=== PATIENT | male | born 2000 | race African-American/Black ===

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

== ENCOUNTER 2023-08-31 23:29 | Emergency (ER) | payer SELFPAY ==
[~2023-08-31] VITALS: Ht 177.8 cm; Wt 81.0 kg
[~2023-08-31 23:29] MED LIST changes: +FLEXERIL PO; +NAPRELAN375 MG PO
[2023-09-01 00:17] LABS: URINE BLOOD DIPSTICK Trace-lysed (NEGATIVE); URINE GLUCOSE - DIPSTICK Negative (NEGATIVE); URINE KETONE Trace mg/dL (NEGATIVE); URINE LEUK ESTERASE Negative (NEGATIVE); URINE NITRITE - DIPSTICK Negative (Negative); URINE PH 5.5 (4.5-8.0); URINE PROTEIN - DIPSTICK Trace mg/dL (NEG-TRACE); URINE SPECIFIC GRAVITY >=1.030; URINE UROBILINOGEN - DIPSTICK 0.2 E.U./dL (0.2)
[2023-09-01 00:18] LABS: BASO% 0.5 % (0-3); EOS% 1.6 % (0-8); HEMATOCRIT 48.2 % (39.0-50.0); HEMOGLOBIN 15.2 g/dl (14.0-18.0); IMMATURE GRANULOCYTES 0.1 % (0.0-5.0); LYMPH% 24.4 % (15-41); MEAN CELL VOLUME 86.7 fL CALC (80.0-100.0); MEAN CORPUSCULAR HGB 27.3 pG CALC (26.0-32.0); MEAN CORPUSCULAR HGB CONC 31.5 g/dL CAL (32.0-36.0); MONO% 6.7 % (2-13); NEUT# 7.51 thou/uL (1.82-7.42); NEUT% 66.7 % (42-76); RED BLOOD COUNT 5.56 mill/uL (4.70-6.10); RED CELL DISTRI WIDTH 12.6 % (11.5-15.5)
[2023-09-01 00:21] LABS: URINE COLOR Yellow
[2023-09-01 00:33] LABS: ALBUMIN 5.1 g/dL (3.2-5.0); ALKALINE PHOSPHATASE 99 u/l (38-126); BILIRUBIN, TOTAL 0.5 mg/dL (0.2-1.3); BUN 11 mg/dL (9-20); BUN/CREATININE RATIO 10 (12-20 (CALC)); CARBON DIOXIDE 28 mmol/l (22-30); CHLORIDE 104 mmol/l (95-108); CREATININE 1.1 mg/dL (0.7-1.3); ETHYL ALCOHOL 0 mg/dl (0-30); GFR FOR AFR.AMER. > 60 ML/MIN (>=60 (CALC)); GFR OTHER RACES > 60 ML/MIN (>=60 (CALC)); SGOT/AST 39 u/l (17-59); SODIUM 144 mmol/l (137-146); TOTAL PROTEIN 8.4 g/dL (6.3-8.2)
[2023-09-01 00:34] LABS: ANION GAP 15 (6-22 (CALC))
[2023-09-01 01:37] VITALS: BP 149/89
== END 2023-09-01 01:28 | disposition home or self-care (01) | DRG 897 ==
LOC: ED 23:29
PROVIDERS: Family Medicine
DX: F12.10 Cannabis abuse, uncomplicated (principal); F23 Brief psychotic disorder; E87.6 Hypokalemia

== ENCOUNTER 2023-09-03 19:35 | Emergency (ER) | payer SELFPAY ==
[~2023-09-03] VITALS: Ht 177.8 cm; Wt 136.0 kg
[2023-09-03 19:43] VITALS: BP 152/95
[2023-09-03 19:45] VITALS: BP 158/108
[2023-09-03 20:00] VITALS: BP 149/88
[2023-09-03 20:38] VITALS: BP 143/93
[2023-09-03 20:51] LABS: BASO% 0.5 % (0-3); EOS% 1.9 % (0-8); HEMATOCRIT 46.3 % (39.0-50.0); IMMATURE GRANULOCYTES 0.2 % (0.0-5.0); LYMPH% 27.7 % (15-41); MEAN CELL VOLUME 85.9 fL CALC (80.0-100.0); MEAN CORPUSCULAR HGB 27.8 pG CALC (26.0-32.0); MEAN CORPUSCULAR HGB CONC 32.4 g/dL CAL (32.0-36.0); MONO% 7.2 % (2-13); NEUT# 6.82 thou/uL (1.82-7.42); NEUT% 62.5 % (42-76); RED BLOOD COUNT 5.39 mill/uL (4.70-6.10); RED CELL DISTRI WIDTH 12.2 % (11.5-15.5)
[2023-09-03 21:10] LABS: ALBUMIN 4.5 g/dL (3.2-5.0); ALKALINE PHOSPHATASE 94 u/l (38-126); ANION GAP 15 (6-22 (CALC)); BILIRUBIN, TOTAL 0.4 mg/dL (0.2-1.3); BUN 11 mg/dL (9-20); BUN/CREATININE RATIO 11 (12-20 (CALC)); CARBON DIOXIDE 26 mmol/l (22-30); CHLORIDE 103 mmol/l (95-108); CPK 1081 u/l (55-170); GFR FOR AFR.AMER. > 60 ML/MIN (>=60 (CALC)); GFR OTHER RACES > 60 ML/MIN (>=60 (CALC)); POTASSIUM 3.4 mmol/l (3.5-5.1); SGOT/AST 37 u/l (17-59); SODIUM 140 mmol/l (137-146); TOTAL PROTEIN 7.3 g/dL (6.3-8.2)
[2023-09-03 22:01] VITALS: BP 118/74
[2023-09-03] MEDS ORDERED: PROMETHAZINE HY25 M1 PO (23:55)
[2023-09-04 00:30] VITALS: BP 135/78
[2023-09-04] MEDS ORDERED: ATIVAN1 M1 PO (22:31)
[2023-09-04] MEDS ORDERED: BENADRYL 25MG C25 MG PO (22:32)
== END 2023-09-04 00:31 | disposition home or self-care (01) | DRG 897 ==
LOC: ED 19:35
PROVIDERS: Internal Medicine
DX: F12.159 Cannabis abuse with psychotic disorder, unspecified (principal); E87.6 Hypokalemia; I10 Essential (primary) hypertension

== ENCOUNTER 2023-09-04 22:18 | Emergency (ER) | payer SELFPAY ==
[~2023-09-04] VITALS: Ht 177.8 cm; Wt 97.5 kg
[~2023-09-04 22:18] MED LIST changes: +PROMETHAZINE HY25 M1 PO
[2023-09-04 22:26] VITALS: BP 143/94
[2023-09-04] MEDS ORDERED: ATIVAN1 M1 PO (22:31)
[2023-09-04] MEDS ORDERED: BENADRYL 25MG C25 MG PO (22:32)
[2023-09-04 22:51] LABS: BASO% 0.3 % (0-3); EOS% 2.2 % (0-8); HEMATOCRIT 44.4 % (39.0-50.0); HEMOGLOBIN 14.2 g/dl (14.0-18.0); IMMATURE GRANULOCYTES 0.2 % (0.0-5.0); LYMPH% 25.8 % (15-41); MEAN CELL VOLUME 87.7 fL CALC (80.0-100.0); MEAN CORPUSCULAR HGB 28.1 pG CALC (26.0-32.0); MONO% 6.9 % (2-13); NEUT# 7.99 thou/uL (1.82-7.42); NEUT% 64.6 % (42-76); RED BLOOD COUNT 5.06 mill/uL (4.70-6.10); RED CELL DISTRI WIDTH 12.4 % (11.5-15.5)
[2023-09-04 23:00] LABS: ALBUMIN 4.2 g/dL (3.2-5.0); ALKALINE PHOSPHATASE 76 u/l (38-126); ANION GAP 14 (6-22 (CALC)); BILIRUBIN, TOTAL 0.3 mg/dL (0.2-1.3); BUN 13 mg/dL (9-20); BUN/CREATININE RATIO 10 (12-20 (CALC)); CARBON DIOXIDE 24 mmol/l (22-30); CHLORIDE 107 mmol/l (95-108); CREATININE 1.3 mg/dL (0.7-1.3); ETHYL ALCOHOL 0 mg/dl (0-30); GFR FOR AFR.AMER. > 60 ML/MIN (>=60 (CALC)); GFR OTHER RACES > 60 ML/MIN (>=60 (CALC)); MAGNESIUM 1.9 mg/dL (1.6-2.3); POTASSIUM 4.1 mmol/l (3.5-5.1); SGOT/AST 34 u/l (17-59); SODIUM 141 mmol/l (137-146); TOTAL PROTEIN 6.8 g/dL (6.3-8.2)
[2023-09-04 23:19] LABS: URINE BILIRUBIN - DIPSTICK Negative (NEGATIVE); URINE BLOOD DIPSTICK Negative (NEGATIVE); URINE GLUCOSE - DIPSTICK Negative (NEGATIVE); URINE KETONE Negative (NEGATIVE); URINE LEUK ESTERASE Negative (NEGATIVE); URINE NITRITE - DIPSTICK Negative (Negative); URINE PH 6.5 (4.5-8.0); URINE PROTEIN - DIPSTICK Negative (NEG-TRACE); URINE UROBILINOGEN - DIPSTICK 0.2 E.U./dL (0.2)
[2023-09-04 23:23] LABS: URINE COLOR Yellow
[2023-09-05 00:01] VITALS: BP 151/93
[2023-09-05 02:25] VITALS: BP 151/93
== END 2023-09-05 02:22 | disposition designated cancer center or children's hospital (05) | DRG 897 ==
LOC: ED 22:18
PROVIDERS: Family Medicine
DX: F12.188 Cannabis abuse with other cannabis-induced disorder (principal); R45.850 Homicidal ideations; Z20.822 Contact with and (suspected) exposure to COVID-19